=== PATIENT | female | born 1945 | race Caucasian/White ===

== ENCOUNTER 2016-08-03 08:32 | Emergency (ER) | payer OTHER ==
[~2016-08-03] VITALS: Ht 162.6 cm; Wt 68.0 kg
--- NOTE | 2016-08-03 08:48 | ED SYNCOPE COMPLAINT ---
History of Present Illness General Chief Complaint: Syncope and Near-Syncope Stated Complaint: SYNCOPAL EPISODE, +LOC, ?HEADSTRIKE Source: patient, family Exam Limitations: no limitations Vital Signs & Intake/Output Vital Signs & Intake/Output Vital Signs Date Time Temp Pulse Resp B/P Pulse O2 O2 Flow FiO2 Ox Delivery Rate 08/03 1043 96.8 108 20 102/64 97 Room Air 08/03 0838 95.0 113 18 102/60 99 Room Air Allergies Coded Allergies: acetaminophen (From Percocet) (Intermediate, ABDOMINAL CRAMPING 08/03/16) aspirin (Intermediate, ABDOMINAL CRAMPING 08/03/16) oxycodone (From Percocet) (Intermediate, ABDOMINAL CRAMPING 08/03/16) Triage Note: 70 Y/O FEMALE PRESENTS S/P SYNCOPLE EPISODE THIS AM; PT STATES SHE REMEMBERS FEELING "SICK TO MY STOMACH AND THEN I WAS ON THE GROUND". FAMILY MEMBER STATES HE HEARD THE NOISE AND FOUND HER ON THE GROUND. DENIES PAIN. DENIES SOB. DENIES DIZZINESS. +NAUSEA. TAKEN FOR EKG Triage Nurses Notes Reviewed? yes HPI: Patient is a 70-year-old female presents complaining of syncopal episode. Patient was making coffee this morning when she had an onset of nausea then had a single episode. The episode was witnessed by her daughter. Patient's heard the patient hit the ground came into the kitchen reports that it looked like her eyes were "rolled back in her head and she was very out of it". Episode lasted for a couple of minutes. Patient continues with moderate nausea. Patient reports that she was incontinent of urine, no reported seizure-like activity by the patient's family. Patient denies chest pain, palpitations, dyspnea, headache (DELIA GUTIERREZ) Past History Travel History Traveled to [place] past 21 day No Medical History Any Pertinent Medical History? see below for history Neurological: NONE EENT: NONE Cardiovascular: hypertension Respiratory: NONE Gastrointestinal: NONE Hepatic: NONE Renal: NONE Musculoskeletal: ARTHRITIS Psychiatric: depression Endocrine: NONE Blood Disorders: WALDENSTROM MACROGLOBULINEMIA Cancer(s): NONE INTENSIVIST/Reproductive: NONE Surgical History Surgical History: non-contributory Psychosocial History What is your primary language Yoruba Tobacco Use: Quit >30 days ago Family History Hx Contributory? No (DELIA GUTIERREZ) Review of Systems Review of Systems Constitutional: Reports: malaise. Denies: chills, fever. EENTM: Denies: blurred vision, visual changes. Respiratory: Reports: cough, sputum production. Denies: short of breath. Cardiovascular: Reports: syncope. Denies: chest pain, palpitations, peripheral edema. GI: Reports: nausea. Denies: abdominal pain, vomiting. Genitourinary: Reports: no symptoms. Musculoskeletal: Reports: joint pain (chronic arthritis). Skin: Reports: no symptoms. Neurological/Psychological: Reports: weakness. Denies: headache, numbness, tonic-clonic seizures, unable to move lower ext, unable to move upper ext. (DELIA GUTIERREZ) Physical Exam Physical Exam General Appearance: alert, awake Head: atraumatic, normal appearance Eyes: Bilateral: normal appearance, PERRL, EOMI. Ears, Nose, Throat: hearing grossly normal, moist mucus membranes, pinked film on patient's tongue and mouth (patient took Pepto-Bismol prior to arrival) Neck: normal inspection, supple, full range of motion, no midline tenderness Respiratory: normal breath sounds, chest non-tender, no respiratory distress, lungs clear Cardiovascular: tachycardia, regular rhythm, no appreciable murmur rub or gallop Gastrointestinal: normal bowel sounds, soft, non-tender Back: normal inspection, normal range of motion Extremities: normal inspection, normal capillary refill, normal range of motion, no edema, no calf tenderness Psychiatric: awake, alert, oriented x 3 Cranial Nerves: normal hearing, normal speech, PERRL Motor/Sensory: no motor/sensory deficits Skin: intact, normal color, warm/dry Core Measures ACS in differential dx? Yes ASA ordered for poss ACS? No-ACS ruled out CVA/TIA Diagnosis: No Severe Sepsis Present: No Septic Shock Present: No (DELIA GUTIERREZ) Progress Differential Diagnosis: AMI, aortic dissection, aortic valve, orthostatic syncope, other valvular disease, pulmonary embolus, sick sinus syndrome, vasodepressor syncope, ventricular tach/fib Plan of Care: Orders Procedure Date/time Status TROPONIN LEVEL 08/03 1201 Complete EKG 08/03 1201 Active URINALYSIS 08/03 0946 Complete Add-on Test (ER Only) 08/03 0943 Active D-DIMER 08/03 0900 Complete MISTAKE 08/03 0849 Active Telemetry/Operations And Maintenance Technician 08/03 848 Active TROPONIN LEVEL 08/03 848 Complete COMPREHENSIVE METABOLIC PANEL 08/03 848 Complete CBC WITHOUT DIFFERENTIAL 08/03 848 Complete EKG 08/03 838 Active Laboratory Tests 08/03/16 1210: Troponin I < 0.01 08/03/16 1148: Urine Color YEL, Urine Clarity CLEAR, Urine pH 6.5, Ur Specific [place] 1.015, Urine Protein NEG, Urine Ketones 15 H, Urine Nitrite NEG, Urine Bilirubin NEG, Urine Urobilinogen 1.0, Ur Leukocyte Esterase NEG, Ur Microscopic EXAM NOT REQUIRED, Urine Hemoglobin NEG, Urine Glucose NEG 08/03/16 0900: Anion Gap 15, Estimated GFR > 60, BUN/Creatinine Ratio 16.3, Glucose 126 H, Calcium 10.0, Total Bilirubin 0.8, AST 20, ALT 31, Alkaline Phosphatase 103, Troponin I < 0.01, Total Protein 8.6 H, Albumin 4.4, Globulin 4.2, Albumin/ Globulin Ratio 1.0 L, D-Dimer 3595 H, CBC w Diff NO MAN DIFF REQ, RBC 5.20, MCV 82.6, MCH 27.2, RDW 14.2, MPV 8.0, Gran % 76.8 H, Lymphocytes % 14.4 L, Monocytes % 7.3, Eosinophils % 1.0, Basophils % 0.5, Absolute Granulocytes 6.1, Absolute Lymphocytes 1.1 L, Absolute Monocytes 0.6, Absolute Eosinophils 0.1, Absolute Basophils 0, PUBS MCHC 32.9 L 0850: Discussed with Dr. Cam 0855: Patient became symptomatic and had increase in pulse rate with orthostatic vital signs. 08/03/2016 9:51:01 AM: Results discussed with patient. Patient resting comfortably. Discussed with Dr. Cam: Plan for d-dimer and repeat EKG and troponin, if negative then can have follow up outpatient. 08/03/2016 12:05:26 PM: Patient resting comfortably. Results of CT scan discussed with patient including the incidental finding of the breast lesion. Discussed importance of follow-up and possible mammogram. 08/03/2016 1:28:05 PM: Patient resting comfortably. No episodes of chest pain, dyspnea, palpitations. No further episodes of syncope in the emergency department. No significant arrhythmias during her emergency department stay. [place] syncope scale 0, appears stable for discharge and close outpatient follow up. (MICKIE ROGERS,DELIA) Diagnostic Imaging: Viewed by Me: Radiology Read. Discussed w/RAD: Radiology Read. Radiology Impression: PATIENT: MALCOLM PADILLA PRESENT AGE: 70 PATIENT ACCOUNT NO: [id number] : 46 LOCATION: [facility] ORDERING PHYSICIAN: DELIA ROGERS SERVICE DATE: 08/03/16 EXAM TYPE: RAD - XRY-PORTABLE CHEST XRAY EXAMINATION: XR PORTABLE CHEST CLINICAL INFORMATION: Syncopal episode today with cough. COMPARISON: Chest x-ray 2015. TECHNIQUE: Portable AP view of the chest was obtained. FINDINGS: Symmetric lung inflation. No focal consolidation, pleural effusion, or pneumothorax. Cardiac silhouette size is normal. There are no acute osseous findings. IMPRESSION: No acute pulmonary process. DICTATED BY: ENRICO ARRINGTON MD DATE/ TIME DICTATED:08/03/16929 PRINCIPAL EXAMINER:MATA DATE/TIME TRANSCRIBED: 08/03/16929 CONFIDENTIAL, DO NOT COPY WITHOUT APPROPRIATE AUTHORIZATION. < Electronically signed in Other Vendor System> SIGNED BY: ENRICO ARRINGTON MD 08/03/16 0935, PATIENT: MALCOLM PADILLA PRESENT AGE: 70 PATIENT ACCOUNT NO: [id number] : 46 LOCATION: [facility] ORDERING PHYSICIAN: DELIA ROGERS SERVICE DATE: 08/03/16 EXAM TYPE: CAT - CTA CHEST- PULMONARY EMBOLISM EXAMINATION: CT ANGIOGRAM OF THE CHEST WITH CONTRAST (CT PULMONARY ANGIOGRAM FOR PE) CLINICAL INFORMATION: Syncope and elevated d-dimer. COMPARISON: None available. TECHNIQUE: Prior to contrast administration, noncontrast localization images were obtained. Subsequently, multidetector volumetric imaging was performed from the thoracic inlet to below the diaphragms following the administration of 94 mL Optiray 320 intravenous contrast. No contrast reaction reported. Sagittal, coronal, and MIP oblique sagittal reformatted images were obtained on the CT workstation, uploaded to PACS, and reviewed. FINDINGS: No filling defects within the central, lobar, or segmental pulmonary arteries to suggest underlying pulmonary embolism. There is no focal consolidation, pleural effusion, or pneumothorax. The thoracic aorta is normal in caliber. The heart is normal in size without evidence of a pericardial effusion. There is no mediastinal, hilar, or axillary adenopathy. No significant soft tissue findings within the chest. The partially visualized upper abdomen is unremarkable. Gallbladder surgically absent. No acute osseous abnormalities. Thoracic spondylosis. There is an indeterminate asymmetric 2.6 cm opacity within the upper outer quadrant of the right breast that should be correlated with mammography to exclude malignancy. IMPRESSION: - No pulmonary embolism. No acute pulmonary process. - There is an indeterminate asymmetric 2.6 cm opacity within the upper outer quadrant of the right breast that should be correlated with mammography to exclude malignancy. VTE: Negative. DICTATED BY: ENRICO ARRINGTON MD DATE/TIME DICTATED:08/03/161145 PRINCIPAL EXAMINER:MATA DATE/TIME TRANSCRIBED:08/03/161145 CONFIDENTIAL, DO NOT COPY WITHOUT APPROPRIATE AUTHORIZATION. <Electronically signed in Other Vendor System> SIGNED BY: ENRICO ARRINGTON MD 08/03/16 1158 Initial ED EKG: sinus tachycardia approximately 103 bpm normal axis, normal intervals, no acute ST/T-wave changes compared to previous EKG Prior EKG: changed (change in qrs lead v3) Repeat EKG: unchanged Rhythm Strip: sinus tachycardia (DELIA GUTIERREZ) Departure Departure Time of Disposition: 1323 Disposition: HOME OR SELF CARE Condition: Stable Clinical Impression Primary Impression: Syncope Qualifiers: Syncope type: unspecified Qualified Code: R55 - Syncope and collapse Secondary Impressions: Breast lesion Referrals: DONNA RITCHIE,BETTYE Boles (PCP/Family) Additional Instructions: Increase your fluid intake. Follow-up with your primary doctor either tomorrow or early next week for further evaluation. Also follow-up with either your primary doctor or your shell maker lockstitch for further evaluation of the undetermined breast lesion in your right breast. You may require a mammogram or ultrasound for further evaluation. Return to the emergency Department immediately if you develop chest pain, difficulty breathing, heart palpitations, lightheadedness, weakness, confusion, lethargy, or any further episodes of passing out. Departure Forms: Customer Survey General Discharge Information (DELIA GUTIERREZ) PA/BAIT MAN Co-Sign Statement Statement: ED Attending supervision documentation- [X] I saw and evaluated the patient. I have also reviewed all the pertinent lab results and diagnostic results. I agree with the findings and the plan of care as documented in the PA's/BAIT MAN's documentation. [] I have reviewed the ED Record and agree with the PA's/BAIT MAN's documentation. [] Additions or exceptions (if any) to the PAs/BAIT MAN's note and plan are summarized below: [] (ENRICO CAM DO)
[2016-08-03 09:13] LABS: ABSOLUTE BASOPHIL COUNT 0 /CUMM (0.0-0.2); ABSOLUTE EOSINOPHIL COUNT 0.1 /CUMM (0.0-0.7); ABSOLUTE GRANULOCYTE CT 6.1 /CUMM (1.4-6.5); ABSOLUTE LYMPH COUNT 1.1 /CUMM (1.2-3.4); ABSOLUTE MONOCYTE COUNT 0.6 /CUMM (0.10-0.60); BASOPHIL % 0.5 % (0.0-2.0); GRANULOCYTE % 76.8 % (42.2-75.2); MEAN CORPUSCULAR HGB 27.2 PG (27.0-31.0); MEAN CORPUSCULAR HGB CONC 32.9 G/DL (33.0-37.0); MEAN CORPUSCULAR VOLUME 82.6 FL (81.0-99.0); PLATELET COUNT 266 /CUMM (130-400); RBC DISTRIBUTION WIDTH 14.2 % (11.5-14.5); WHITE BLOOD CELL COUNT 7.9 /CUMM (4.8-10.8)
--- NOTE | 2016-08-03 09:35 | RADIOLOGY REPORT ---
EXAMINATION: XR PORTABLE CHEST CLINICAL INFORMATION: Syncopal episode today with cough. COMPARISON: Chest x-ray 05/23/2015. TECHNIQUE: Portable AP view of the chest was obtained. FINDINGS: Symmetric lung inflation. No focal consolidation, pleural effusion, or pneumothorax. Cardiac silhouette size is normal. There are no acute osseous findings. IMPRESSION: No acute pulmonary process.
[2016-08-03 10:43] VITALS: BP 102/64
--- NOTE | 2016-08-03 11:58 | CT SCAN REPORT ---
EXAMINATION: CT ANGIOGRAM OF THE CHEST WITH CONTRAST (CT PULMONARY ANGIOGRAM FOR PE) CLINICAL INFORMATION: Syncope and elevated d-dimer. COMPARISON: None available. TECHNIQUE: Prior to contrast administration, noncontrast localization images were obtained. Subsequently, multidetector volumetric imaging was performed from the thoracic inlet to below the diaphragms following the administration of 94 mL Optiray 320 intravenous contrast. No contrast reaction reported. Sagittal, coronal, and MIP oblique sagittal reformatted images were obtained on the CT workstation, uploaded to PACS, and reviewed. FINDINGS: No filling defects within the central, lobar, or segmental pulmonary arteries to suggest underlying pulmonary embolism. There is no focal consolidation, pleural effusion, or pneumothorax. The thoracic aorta is normal in caliber. The heart is normal in size without evidence of a pericardial effusion. There is no mediastinal, hilar, or axillary adenopathy. No significant soft tissue findings within the chest. The partially visualized upper abdomen is unremarkable. Gallbladder surgically absent. No acute osseous abnormalities. Thoracic spondylosis. There is an indeterminate asymmetric 2.6 cm opacity within the upper outer quadrant of the right breast that should be correlated with mammography to exclude malignancy. IMPRESSION: - No pulmonary embolism. No acute pulmonary process. - There is an indeterminate asymmetric 2.6 cm opacity within the upper outer quadrant of the right breast that should be correlated with mammography to exclude malignancy. VTE: Negative.
== END 2016-08-03 13:40 ==
LOC: ERH 08:32
PROVIDERS: Physician Assistant
DX: R55 Syncope and collapse (principal); L98.9 Disorder of the skin and subcutaneous tissue, unspecified; I10 Essential (primary) hypertension; R11.0 Nausea; Z87.891 Personal history of nicotine dependence
CPT/HCPCS: 81003; 93005; 93010; 96361; 96374; J2405